=== PATIENT | male | born 1960 | race African-American/Black ===

== ENCOUNTER 2019-03-19 15:48 | Emergency (ER) | payer BC ==
[~2019-03-19] VITALS: Ht 182.9 cm; Wt 136.1 kg
--- NOTE | 2019-03-19 16:00 | NUR ---
Patient to ER bed 5 to gown for evaluation. Side rails up. Report given to DOUGIE TYLER.
[2019-03-19 16:10] VITALS: BP_SYST 134
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
--- NOTE | 2019-03-19 16:41 | NUR ---
ER at bedside examining patient.
[2019-03-19] MEDS ORDERED: KETOROLAC TROMETHAMINE 60 MG/2 ML VIAL IM ONE (16:45)
--- NOTE | 2019-03-19 16:57 | NUR ---
Patient was given for pain, Luis Miguel from radiology arrived to take patient for XR exams.
--- NOTE | 2019-03-19 17:20 | NUR ---
Patient returned from XR for exam. Will continue to follow up.
--- NOTE | 2019-03-19 17:40 | NUR ---
Dr. Fermin at bedside discussing pending discharge.
[2019-03-19 17:43] VITALS: BP_SYST 134
--- NOTE | 2019-03-19 17:43 | NUR ---
Patient given written and verbal discharge instructions and verbalizes understanding. ER MD discussed with patient the results and treatment provided. Patient in stable condition. ID arm band removed. Rx of Naprosyn given. Patient educated on pain management and to follow up with PMD. Pain Scale 5/10, tolerable per patient. Opportunity for questions provided and answered. Medication side effect fact sheet provided.
== END 2019-03-19 17:43 | disposition home or self-care (01) ==
LOC: SED 15:48
DX: S13.4XXA Sprain of ligaments of cervical spine, initial encounter (principal); S43.401A Unspecified sprain of right shoulder joint, initial encounter; S43.402A Unspecified sprain of left shoulder joint, initial encounter; S83.91XA Sprain of unspecified site of right knee, initial encounter; S83.92XA Sprain of unspecified site of left knee, initial encounter; V43.52XA Car driver injured in collision with other type car in traffic accident, initial encounter; Y93.89 Activity, other specified; Y92.89 Other specified places as the place of occurrence of the external cause; Y99.8 Other external cause status
CPT/HCPCS: 72040; 73030; 73560; 96372; 99283; J1885